=== PATIENT | female | born 2000 | race Caucasian/White ===

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

== ENCOUNTER 2019-05-08 01:53 | Emergency (ER) | payer OTHER ==
[2019-05-08 02:06] VITALS: RESP 18
[2019-05-08] MEDS ORDERED: DIPH,PERTUS(ACELL)TETVAC-LF 0.5 ML VIAL IM ONE (02:24)
[2019-05-08] MEDS ORDERED: LIDOCAINE 1%-EPI 1:100,000 20 ML VIAL SQ STA (02:25)
--- NOTE | 2019-05-08 02:28 | ED ---
General Adult HPI - General Chief complaint: Wound/Laceration Stated complaint: Fall, R Leg Laceration Time Seen by Provider: 05/08/19 02:07 Source: patient, RN notes reviewed Mode of arrival: ambulatory Limitations: no limitations - History of Present Illness Initial comments: 19-year-old female presents to the emergency department for a chief complaint of laceration. Patient states she tripped and fell. States that she hit her leg against a metal part of her dresser and it caused a laceration. Patient is not up-to-date on tetanus. She denies any difficulty moving her foot.Patient has no other complaints at this time including shortness of breath, chest pain, abdominal pain, nausea or vomiting, headache, or visual changes. - Related Data Home Medications Medication Instructions Recorded Confirmed No Known Home Medications 02/06/17 09/25/17 Allergies Allergy/AdvReac Type Severity Reaction Status Date / Time No Known Allergies Allergy Verified 09/25/17 21:44 Review of Systems ROS Statement: Those systems with pertinent positive or pertinent negative responses have been documented in the HPI. ROS Other: All systems not noted in ROS Statement are negative. Past Medical History Past Medical History: No Reported History History of Any Multi-Drug Resistant Organisms: None Reported Past Surgical History: Appendectomy Past Psychological History: Depression Smoking Status: Current every day smoker Past Alcohol Use History: None Reported Past Drug Use History: Marijuana General Exam Limitations: no limitations General appearance: alert, in no apparent distress Head exam: Present: atraumatic, normocephalic, normal inspection Eye exam: Present: normal appearance, PERRL, EOMI. Absent: scleral icterus, conjunctival injection, periorbital swelling ENT exam: Present: normal exam, mucous membranes moist Neck exam: Present: normal inspection, full ROM. Absent: tenderness, meningismus Respiratory exam: Present: normal lung sounds bilaterally. Absent: respiratory distress, wheezes, rales, rhonchi, stridor Cardiovascular Exam: Present: regular rate, normal rhythm, normal heart sounds. Absent: systolic murmur, diastolic murmur, rubs, gallop, clicks Extremities exam: Present: full ROM, normal capillary refill (Refill less than 2 seconds in the right lower extremity, DP pulse 2+), other (Patient has a 4 cm laceration noted of the mid lower extremity lateral aspect). Absent: tenderness, pedal edema, joint swelling, calf tenderness Course Vital Signs 12/18/19 02:03 Temperature 99.0 F Pulse Rate 111 H Respiratory 18 Rate Blood Pressure 121/81 O2 Sat by Pulse 98 Oximetry Procedures - Laceration Laceration #1 Consent Obtained: verbal consent Indication: laceration Site: lower extremity Size (cm): 5 Description: stellate Depth: simple, single layer Anesthetic Used: lidocaine 1%, with epi Anesthesia Technique: local infiltration Amount (mls): 7 Pre-repair: wound explored, irrigated extensively (saline pressure irrigation), deep structures intact (no evidence for tendon injury) Type of Sutures: nylon (10), vicryl (3) Size of Sutures: 5-0 Technique: simple, interrupted Patient Tolerated Procedure: well, no complications Medical Decision Making - Medical Decision Making X-ray shows soft tissue laceration, no fracture or radiopaque foreign body identified. Wound was cleaned thoroughly with saline pressure irrigation. It was then repaired with 10 simple interrupted sutures externally and 3 buried simple interrupted absorbable sutures internally. No evidence for tendon injury or deep structure injury. Discussed return parameters including as for infection as well as suture removal. Discussed applying up with primary care for wound recheck. Disposition Clinical Impression: Laceration Disposition: HOME SELF-CARE Condition: Good Instructions (If sedation given, give patient instructions): Care For Your Stitches (ED), Laceration (ED) Additional Instructions: please return in 10 days for suture removal. Follow-up with primary care in 1-2 days for a wound recheck. If you have any evidence of infection or there is spreading or streaking redness, drainage, fever or any other worsening symptoms return to the emergency department. Is patient prescribed a controlled substance at d/c from ED?: No Referrals: Kolby Topete MD [Primary Care Provider] - 1-2 days Time of Disposition: 03:30
--- NOTE | 2019-05-08 02:41 | XR ---
EXAMINATION TYPE: XR tibia fibula RT DATE OF EXAM: 05/08/2019 COMPARISON: NONE HISTORY: Laceration TECHNIQUE: 2 views FINDINGS: There is soft tissue defect over the lateral lower fibula. There is no sign of radiopaque f oreign body. There is no sign of fracture nor dislocation. IMPRESSION: Soft tissue laceration. No fracture seen.
[2019-05-08 03:39] VITALS: BP 107/79; PULSE 96; TEMP 98
== END 2019-05-08 03:38 | disposition home or self-care (01) ==
LOC: EC 01:53
DX: S81.811A Laceration without foreign body, right lower leg, initial encounter (principal); F17.200 Nicotine dependence, unspecified, uncomplicated; W01.198A Fall on same level from slipping, tripping and stumbling with subsequent striking against other object, initial encounter
CPT/HCPCS: 12002; 99283

== ENCOUNTER 2019-07-22 14:34 | Emergency (ER) | payer OTHER ==
[2019-07-22 14:51] VITALS: BP 119/77; PULSE 80; RESP 18; TEMP 98.7
--- NOTE | 2019-07-22 15:27 | ED ---
Upper Extremity HPI - General Chief Complaint: Extremity Injury, Upper Stated Complaint: hand injury/laceration Time Seen by Provider: 07/22/19 15:04 Source: patient Mode of arrival: ambulatory Limitations: no limitations - History of Present Illness Initial Comments: 19-year-old female presents today for chief complaint of right hand laceration x just prior to arrival. Patient states her right third digit on the third she has a laceration that wont stop bleeding. SHe states she has other scratches on her hand but they are not bleeding. Denies known foreign body. Patient states there is no large lacerations she denies any limitations to range of motion or strength. She states she would not do an x-ray she states that her tetanus is up-to-date. Patient denies any other areas of injury she states that she obtained this by punching glass but she states she was angry. Patient states that this was not a suicide attempt denies any depression suicidal ideation. Patient states that she is safe she denies being in harm's way. Patient is not accompanied by any other guests. Patient has no other complaints, upon arrival she appears well there is no signs of acute distress. - Related Data Previous Rx's Medication Instructions Recorded Cephalexin [Keflex] 500 mg PO Q12HR 5 Days #10 cap 07/22/19 Allergies Allergy/AdvReac Type Severity Reaction Status Date / Time No Known Allergies Allergy Verified 09/25/17 21:44 Review of Systems ROS Statement: Those systems with pertinent positive or pertinent negative responses have been documented in the HPI. ROS Other: All systems not noted in ROS Statement are negative. Past Medical History Past Medical History: No Reported History History of Any Multi-Drug Resistant Organisms: None Reported Past Surgical History: Appendectomy Past Psychological History: Depression Smoking Status: Current every day smoker Past Alcohol Use History: None Reported Past Drug Use History: Marijuana General Exam - General Exam Comments Initial Comments: General: The patient is awake and alert, in no distress, and does not appear acutely ill. Eye: +3 mm pupils are equal, round and reactive to light, extra-ocular movements are intact. No nystagmus. There is normal conjunctiva bilaterally. No signs of icterus. Cardiovascular: There is a regular rate and rhythm. No murmur, rub or gallop is appreciated. Respiratory: Lungs are clear to auscultation, respirations are non-labored, breath sounds are equal. No wheezes, stridor, rales, or rhonchi. Gastrointestinal: Soft, non-distended, non-tender abdomen without masses or organomegaly noted. There is no rebound or guarding present. Musculoskeletal: Upon inspection of the hands bilaterally there is numerous abrasions appears superficial of the ventral aspect of the right hand. Patient does have a laceration just distal to the PIP joint of the third digit of the right hand, it is superficial skin flap. Patient has full range motion of the MCP DIP and PIP joints of all 5 digits of the right hand. There is no limitations range of motion or strength. No evidence of deep laceration or obvious tendon injury or known foreign body. Sensation intact prximal and distal to injury site. Radial pulses equal bilaterally 2+. Neurological: A&O x 3. CN II-XII intact grossly, There are no obvious motor or sensory deficits. Coordination appears grossly intact. Speech is normal. Skin: Skin is warm and dry and no rashes or lesions are noted. Psychiatric: Cooperative, appropriate mood & affect, normal judgment. Limitations: no limitations Course Vital Signs 07/22/19 07/22/19 14:47 15:43 Temperature 98.7 F 98.7 F Pulse Rate 80 80 Respiratory 18 18 Rate Blood Pressure 119/77 119/77 O2 Sat by Pulse 98 98 Oximetry Procedures - Laceration Laceration #1 Consent Obtained: verbal consent Indication: laceration Site: hand Size (cm): 1 Description: linear, flap Depth: simple, single layer Pre-repair: wound explored, irrigated extensively, deep structures intact Size of Sutures: 5-0 Number of Sutures: 2 Technique: simple, interrupted Patient Tolerated Procedure: well, no complications Additional Comments: Patient refused any lidocaine she states that her worse last time she has sutures. So the procedure was performed without lidocaine. Patient type procedure well 2 sutures were placed a additional suture could have been placed however patient refused. Area was cleansed, and explored no evidence of obvious FB or tendon injury. Patient refused imaging studies prior to closure, aware of risk of fracture/open fracture/retained foreign body. Patient will be placed on antibiotics. Medical Decision Making - Medical Decision Making 19 you female presents today for chief complaint of laceration repair patient has a skin flap that won't stop bleeding on the third digit. No evidence of obvious foreign body or tendon injury. Patient neurovascular intact. Repaired with 2 sutures. Return parameters importance of follow-up with discussed patient's placed on antibiotics. Patient refused tetanus refused imaging s tudies risk were discussed at length the patient she continues to refuse. Patient does not appear intoxicated and is of sound mind. She states this is because she doesn't have insurance. I encouraged patient to have the studies performed however she continued to refuse. After procedure was performed patient has no other complaints patient is discharged appearing well Disposition Clinical Impression: Finger injury, Right hand pain, Finger laceration Disposition: HOME SELF-CARE Condition: Good Instructions (If sedation given, give patient instructions): Finger Laceration (ED) Additional Instructions: Please use medication as discussed. Please follow-up with family doctor in the next 2 days. Please return to emergency room if the symptoms increase or worsen or for any other concerns. Prescriptions: Cephalexin [Keflex] 500 mg PO Q12HR 5 Days #10 cap Is patient prescribed a controlled substance at d/c from ED?: No Referrals: Kolby Topete MD [Primary Care Provider] - 1-2 days Time of Disposition: 15:26
== END 2019-07-22 15:43 | disposition home or self-care (01) ==
LOC: EC 14:34
DX: S61.212A Laceration without foreign body of right middle finger without damage to nail, initial encounter (principal); S60.511A Abrasion of right hand, initial encounter; F17.200 Nicotine dependence, unspecified, uncomplicated; Z53.29 Procedure and treatment not carried out because of patient's decision for other reasons; W25.XXXA Contact with sharp glass, initial encounter
CPT/HCPCS: 12001; 99282

== ENCOUNTER 2020-05-31 13:52 | Emergency (ER) | payer OTHER ==
[2020-05-31 14:01] VITALS: BP 122/65; PULSE 106; RESP 20; TEMP 98.4
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
--- NOTE | 2020-05-31 15:12 | XR ---
EXAMINATION TYPE: XR knee complete RT DATE OF EXAM: 05/31/2020 COMPARISON: NONE HISTORY: Knee pain TECHNIQUE: 3 views FINDINGS: I see no fracture nor dislocation. Joint spaces are normal. There is no sign of joint effus ion. IMPRESSION: Normal right knee.
[2020-05-31] MEDS ORDERED: ACET/COD 300 MG/30 MG STARTER PACK 6 TAB BTL PO STA (15:47)
== END 2020-05-31 16:00 | disposition home or self-care (01) ==
LOC: EC 13:52
DX: S83.91XA Sprain of unspecified site of right knee, initial encounter (principal); Z90.49 Acquired absence of other specified parts of digestive tract; X58.XXXA Exposure to other specified factors, initial encounter
CPT/HCPCS: 81025; 73562; 99283; L1830

== ENCOUNTER 2020-07-01 21:31 | Emergency (ER) | payer OTHER ==
[2020-07-01 21:39] VITALS: BP 154/87; PULSE 101; RESP 18; TEMP 98
[2020-07-01] MEDS ORDERED: ZIPRASIDONE 20 MG VIAL IM STA (22:10)
[2020-07-01] MEDS ORDERED: LORazepam 2 MG/ML INJ IV STA (22:10)
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
[2020-07-01] MEDS ORDERED: LORazepam 2 MG/ML INJ IM STA (22:26)
== END 2020-07-02 04:15 | disposition home or self-care (01) ==
LOC: SUPCPDRO 21:31 → EC 21:31
DX: F32.9 Major depressive disorder, single episode, unspecified (principal); R45.851 Suicidal ideations; F17.290 Nicotine dependence, other tobacco product, uncomplicated; Z79.899 Other long term (current) drug therapy
CPT/HCPCS: 82075; 99285; 96372 ×2; J2060; J3486

== ENCOUNTER 2020-09-29 05:33 | Emergency (ER) | payer OTHER ==
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
[2020-09-29 05:49] VITALS: BP 116/84; PULSE 91; RESP 16; TEMP 97.3
== END 2020-09-29 06:52 | disposition home or self-care (01) ==
LOC: EC 05:33
DX: F43.22 Adjustment disorder with anxiety (principal); T65.91XA Toxic effect of unspecified substance, accidental (unintentional), initial encounter; Z90.89 Acquired absence of other organs; F32.9 Major depressive disorder, single episode, unspecified; F12.90 Cannabis use, unspecified, uncomplicated
CPT/HCPCS: 99284

== ENCOUNTER 2020-10-08 22:29 | Inpatient (IN) | payer MEDICAID, OTHER ==
[2020-10-08] MEDS ORDERED: SODIUM CHLORIDE 0.9% 1,000 ML IV STA (23:35)
[2020-10-08] MEDS ORDERED: diphenhydrAMINE 50 MG/ML 1 ML VIAL IM STA (23:35)
[2020-10-08] MEDS ORDERED: SODIUM CHLORIDE 0.9% 500 ML 500 ML IV STA (23:35)
[2020-10-08] MEDS ORDERED: LORazepam 2 MG/ML INJ IV STA (23:35)
[2020-10-08] MEDS ORDERED: LORazepam 2 MG/ML INJ IM STA (23:36)
[2020-10-08] MEDS ORDERED: LORazepam 1 MG TAB PO STA (23:46)
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
[2020-10-09] MEDS ORDERED: diphenhydrAMINE 50 MG/ML 1 ML VIAL IM STA (02:23)
[2020-10-09] MEDS ORDERED: ZIPRASIDONE 20 MG VIAL IM STA (02:37)
[2020-10-09 02:38] LABS: Amphetamine Screen,Urine Detected (NotDetected); Barbiturate Screen,Urine Not Detected (NotDetected); Benzodiazepines Screen,Urine Detected (NotDetected); Cocaine Screen,Urine Not Detected (NotDetected); Methadone Screen, Urine Not Detected (NotDetected); Opiate Screen,Urine Detected (NotDetected); Oxycodone Screen, Urine Not Detected (NotDetected); Phencyclidine Screen,Urine Not Detected (NotDetected); Tricyclic Antidepressant,Urine Not Detected (NotDetected); Urn Cannabinoid Scrn Detected (NotDetected)
[2020-10-09] MEDS ORDERED: MAGNESIUM HYDROXIDE 2,400 MG/10 ML CUP PO PRN (10:53)
[2020-10-09] MEDS ORDERED: MAG HYDROX/AL HYDROX/SIMETH 30 ML CUP PO PRN (10:53)
[2020-10-09] MEDS ORDERED: HALOPERIDOL LACTATE 5 MG/ML 1 ML VIAL IM PRN (10:57)
[2020-10-09] MEDS ORDERED: LORazepam 2 MG/ML INJ IM PRN ×2 (10:58→11:37)
[2020-10-09] MEDS ORDERED: LORazepam 1 MG TAB PO PRN ×2 (10:58→11:37)
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
[2020-10-09] MEDS ORDERED: chlordiazePOXIDE 25 MG CAP PO SCH (16:00)
[2020-10-09] MEDS: chlordiazePOXIDE 25 MG CAP PO SCH ×2 (16:20→21:44)
--- NOTE | 2020-10-09 17:10 | P.CONS ---
History of Present Illness - Reason for Consult Medical clearance - History of Present Illness Patient is admitted for bizarre behavior suicidal or to and substance abuse issues patient) nausea vomiting up and dysuria patient has multiple old the scars consistent with previous suicide attempts. Patient was quite a bit agitated earlier today patient was, and was able to give me history. Patient denied any recent drug abuse but her urine drug screen is positive for multiple drugs. Review of Systems REVIEW OF SYSTEMS: CONSTITUTIONAL: No fever, no malaise, no fatigue. HEENT: No recent visual problems or hearing problems. Denied any sore throat. CARDIOVASCULAR: No chest pain, orthopnea, PND, no palpitations, no syncope. PULMONARY: No shortness of breath, no cough, no hemoptysis. GASTROINTESTINAL: No diarrhea, no nausea, no vomiting, no abdominal pain. NEUROLOGICAL: No headaches, no weakness, no numbness. HEMATOLOGICAL: Denies any bleeding or petechiae. GENITOURINARY: Denies any burning micturition, frequency, or urgency. MUSCULOSKELETAL/RHEUMATOLOGICAL: Denies any joint pain, swelling, or any muscle pain. ENDOCRINE: Denies any polyuria or polydipsia. The rest of the 14-point review of systems is negative. Past Medical History Past Medical History: No Reported History History of Any Multi-Drug Resistant Organisms: None Reported Past Surgical History: Appendectomy Past Psychological History: Anxiety, Bipolar, Depression, PTSD Smoking Status: Vaper Past Alcohol Use History: None Reported Past Drug Use History: Marijuana Medications and Allergies Home Medications Medication Instructions Recorded Confirmed Type No Known Home Medications 10/09/20 10/09/20 History Allergies Allergy/AdvReac Type Severity Reaction Status Date / Time No Known Allergies Allergy Verified 10/09/20 09:28 Physical Exam Vitals: Vital Signs Temp Pulse Pulse Resp BP BP Pulse Ox 10/09/20 16:23 97.9 F 128 H 16 123/66 10/09/20 06:56 87 14 100/68 96 10/09/20 04:00 102 H 13 94/69 95 10/09/20 01:54 103 H 24 117/60 97 10/08/20 23:48 120 H 20 98 10/08/20 22:37 97.9 F 160 H 22 113/69 95 Intake and Output 10/09/20 10/09/20 10/09/20 06:59 14:59 22:59 Other: Weight 48.081 kg PHYSICAL EXAMINATION: GENERAL: The patient is alert and oriented x3, not in any acute distress. Well developed, well nourished. HEENT: Pupils are round and equally reacting to light. EOMI. No scleral icterus. No conjunctival pallor. Normocephalic, atraumatic. No pharyngeal erythema. No thyromegaly. CARDIOVASCULAR: S1 and S2 present. No murmurs, rubs, or gallops. PULMONARY: Chest is clear to auscultation, no wheezing or crackles. ABDOMEN: Soft, nontender, nondistended, normoactive bowel sounds. No palpable organomegaly. MUSCULOSKELETAL: No joint swelling or deformity. EXTREMITIES: No cyanosis, clubbing, or pedal edema. NEUROLOGICAL: Gross neurological examination did not reveal any focal deficits. SKIN: Multiple scars consistent with previous suicide attempt Results Labs: Abnormal Lab Results - Last 24 Hours (Table) 10/09/20 Range/Units 02:20 Urine Opiates Screen Detected H (NotDetected) Ur Amphetamines Screen Detected H (NotDetected) U Methamphetamines Scrn Detected H (NotDetected) U Benzodiazepines Scrn Detected H (NotDetected) U Marijuana (THC) Screen Detected H (NotDetected) Assessment and Plan Plan: -Acute psychosis and bipolar disorder: Management as per primary service -Polysubstance abuse Patient doesn't have any major medical problems management of her psychiatric issues and substance abuse coronary syndromes. We will sign off at this time please call us back if needed.
[2020-10-09] MEDS ORDERED: QUEtiapine 100 MG TAB PO SCH (21:00)
[2020-10-10] MEDS: chlordiazePOXIDE 25 MG CAP PO SCH ×3 (09:27→16:13)
[2020-10-10 09:42] LABS: Basophils # (A) 0.1 k/uL (0-0.2); Basophils % (A) 1 %; Eosinophils # (A) 0.4 k/uL (0-0.7); Eosinophils % (A) 4 %; HCT 47.1 % (34.0-46.0); Lymphocytes # (A) 1.4 k/uL (1.0-4.8); Lymphocytes % (A) 16 %; MCH 29.3 pg (25.0-35.0); MCHC 34.1 g/dL (31.0-37.0); MCV 85.9 fL (80.0-100.0); Mean Platelet Volume 7.9; Monocytes # (A) 0.6 k/uL (0-1.0); Monocytes % (A) 6 %; Neutrophils # (A) 6.4 k/uL (1.3-7.7); Neutrophils % (A) 71 %; Platelet Count 311 k/uL (150-450); RBC 5.48 m/uL (3.80-5.40); RDW 12.7 % (11.5-15.5)
[2020-10-10 09:53] LABS: ALT 22 U/L (4-34); AST 48 U/L (14-36); African American GFR (CKD) >90 (>60 ml/min/1.73 sqM); Albumin 5.1 g/dL (3.5-5.0); Alkaline Phosphatase 68 U/L (38-126); Anion Gap 20 mmol/L; Blood Urea Nitrogen 23 mg/dL (7-17); Calcium 9.6 mg/dL (8.4-10.2); Carbon Dioxide 19 mmol/L (22-30); Chloride 97 mmol/L (98-107); Glucose 64 mg/dL (74-99); Non-African American GFR(CKD) 83 (>60 ml/min/1.73 sqM); Potassium 4.6 mmol/L (3.5-5.1); Sodium 136 mmol/L (137-145); Total Protein 7.9 g/dL (6.3-8.2)
[2020-10-10 14:12] LABS: Hemoglobin A1C 5.2 % (4.0-6.0)
[2020-10-10] MEDS: ACETAMINOPHEN TAB 325 MG TAB PO PRN (16:13)
[2020-10-10 16:33] VITALS: RESP 20
[2020-10-10] MEDS ORDERED: QUEtiapine 50 MG TAB PO ONE (17:15)
[2020-10-10 17:24] LABS: Chol/HDL Ratio 4.24; Cholesterol 191 mg/dL (0-200)
[2020-10-10 18:18] LABS: T4, Free (Free Thyroxine) 2.07 ng/dL (0.78-2.19)
[2020-10-10] MEDS ORDERED: QUEtiapine 50 MG TAB PO SCH (21:00)
[2020-10-11] MEDS ORDERED: QUEtiapine 50 MG TAB PO SCH (09:00)
--- NOTE | 2020-10-11 11:50 | PN ---
PROGRESS NOTE DATE OF SERVICE: 10/10/2020. CHIEF COMPLAINT: The patient had substance abuse issues. She presented with suicidal thinking and bizarre behavior. She had grief issues with the of her mother 4 months ago. INTERVAL HISTORY: Patient has been doing fair. She had quite a bit of ups and downs yesterday. She was quite distressed about coming into the hospital. She was distressed about the petition situation and angry about her sister who filed a petition on her behalf. Nursing documented that she had periods where she became tearful she would yell. She was verbally aggressive. She was demanding to be discharged. She was able to engage with nursing and staff support, though it was an up and down process. She slept poorly last night. Today she has been up. She seems a little calmer overall, still quite distressed about the hospital situation. She was angry about being petitioned and continued to push towards the idea of discharge. Her highest CIWA score was 7 so far. When we talked about the petition situation, I provided information about the process. I did discuss with the patient that there was an option to have her sign in voluntarily though that would require me to talk to her sister who signed the petition. I noted that I would need to get more information to be able to process things with her. She said that a more important person to talk to would be her boyfriend. I indicated that we could talk to both of those people to broaden our view. At this time, the patient was not inclined to have contact with her sister and also noted that it would be difficult to go back on the petition and certification that Dr. Pacheco had completed based on her presentation in early part of her hospitalization. I also had a discussion with her about substance withdrawal issues. The patient appears to be tolerating her psychotropic medications. MENTAL STATUS: Patient sat at the far part of the room. She was fairly restless. She answered questions with brief responses. Her thoughts were clear. She tended to mostly focus on her concern about discharge and her feeling of having been hospitalized in circumstances that were quite unfair for her. Her affect was intense. Her mood depressed. She was moderately distressed. There was no clear indication of thought disorder. She voiced no thoughts of harm. Cognition was clear. ASSESSMENT: I will continue the current diagnosis and treatment plan. I will increase the patient's Seroquel and start the 50 mg twice a day in addition to 150 mg at bedtime. I discussed withdrawal issues with the patient. I also provided some handouts on managing early withdrawal. I again discussed the petition process with the patient. I encouraged her to engage in the groups and gave her a guidance about our process for working towards discharge planning. We discussed that it is important for her to be in groups and to have a positive interactions with staff as signs of her progress. We discussed that she could seek out one-to-one with staff to be able to deal with some of the emotional struggles that may be coming up at this point. We will focus on stabilization and discharge planning. RAYMOND / SMOOTHN: [id number] /
--- NOTE | 2020-10-11 11:53 | PN ---
PROGRESS NOTE DATE OF SERVICE: 10/11/2020. CHIEF COMPLAINT: The patient had substance abuse issues, suicidal thinking and bizarre behavior. She had grief issues with the of her mother 4 months ago. INTERVAL HISTORY: Patient has been doing fair. She had a quiet day yesterday as the day went on. She seemed to respond positively to the discussion we had about the petition situation and the course of treatment. I had encouraged her to engage in treatment. She did attend groups in the afternoon and seemed to find some benefit in those. Her CIWA score today just after 1:00 am was 0. She notes that she did not sleep well last night. Today she has been up. She has been more interactive with others. She comes out in the day area. She presents in a fairly calm manner and seems to be more positive in her outlook. When we talked, she was able to discuss some discharge planning issues. She seemed to be more accepting of the discharge planning which includes the issues relating to the petition. She says it is her expectation that she would sign a deferral and notes that she has been making contact herself with [facility] for followup. She notes that her mood has improved and she is a little more even in her mood overall. Her only complaint today is poor sleep last night. She tolerates her psychotropic medications. MENTAL STATUS: Patient sat near the desk I was at. She gave good eye contact. She was a little restless. She answered questions appropriately. Her thoughts were clear. She had a quiet reserved affect, though she was calm and had a friendly manner. Her mood was reserved though not clearly down or depressed. She did not appear to be significantly distressed. There was no indication of thought disorder. She voiced no thoughts of harm. Cognition was clear. ASSESSMENT: I will continue the current diagnosis and treatment plan. Patient appears to be making progress. She shows a better mood. She is more engaging. She has been appropriate in her interactions with staff and peers. She is compliant with care. I will increase her Seroquel to 200 mg at bedtime and continue 50 mg twice a day. I discussed that she can expect gradual increases in her blood level of Seroquel over the next few days, which should also benefit her in regard to withdrawal symptoms. Patient seems to be making good progress. We will focus on stabilization and discharge planning. MMODL / IJN: [id number] /
[2020-10-11] MEDS: QUEtiapine 25 MG TAB PO SCH ×2 (15:57→21:28)
[2020-10-11] MEDS ORDERED: QUEtiapine 200 MG TAB PO SCH (21:00)
--- NOTE | 2020-10-11 22:13 | XR ---
Result: Clinical History: Pain and swelling. Comparison: None available. Technique: 3 views of the right hand. Findings: No acute fracture or dislocation is seen. The visualized osseous structures are in anatomic alignmen t. The joint spaces are preserved. There is no definite radiopaque foreign body seen. Impression: No acute osseous abnormality.
[2020-10-12] MEDS: QUEtiapine 25 MG TAB PO SCH (08:35)
[2020-10-12 09:20] VITALS: BP 133/83; PULSE 110
[2020-10-12 10:03] VITALS: TEMP 98.1
[2020-10-12] MEDS: ACETAMINOPHEN TAB 325 MG TAB PO PRN (10:41)
--- NOTE | 2020-10-13 18:33 | DS ---
DISCHARGE SUMMARY DATE OF ADMISSION: 10/08/2020 DATE OF DISCHARGE: 10/12/2020. ADMISSION AND DISCHARGE DIAGNOSES: 1. Acute psychosis, likely secondary to polysubstance abuse. 2. Bipolar disorder. 3. Polysubstance abuse, methamphetamine, opioids, benzodiazepines, marijuana. HISTORY OF PRESENTING ILLNESS: The patient is a 20-year-old female. She was brought to the ED by her family for substance use issues, suicidal thinking and bizarre behavior. She had a number of stresses, including her mother dying about 4 months ago. She had a recent breakup with a boyfriend. When she got to the ED, she was in an agitated state and required 4-point restraints. She had presented to the ED on two previous occasions recently which included for substance use issues and driving erratically. The patient was expressing some paranoid delusions. She reported a history of a diagnosis of bipolar disorder. Psychotropic medications prior to admission included Prozac 40 mg a day and Seroquel 150 mg at bedtime. Substance use issues included multiple street drugs. Urine drug screen was positive for opiates, amphetamines, methamphetamines, benzodiazepines and THC. She was admitted for further evaluation. MENTAL STATUS EXAMINATION: The patient was uncooperative during the interview. She was dressed in a hospital gown. She had some agitated behavior and at times would start screaming. Speech was dysarthric. She was repetitive. Mood angry. She exhibited paranoid delusions. Cognition was impaired. COURSE OF HOSPITALIZATION: Patient was admitted for comprehensive medical, psychiatric and psychosocial evaluation. We engaged the patient in individual and group therapeutic activity. She was started on Librium 25 mg 3 times a day for benzodiazepine withdrawal. In addition, she was started on Seroquel 100 mg at bedtime. She was initiated on a [facility] protocol to monitor for withdrawal. Early on in admission, the patient was quite agitated. She was loud and demanding. She did not respond well to staff support. She was quite restless. She would walk about the unit in quite a rapid pace. She was compliant with treatment. Her Seroquel was titrated up. She was started on a daytime dose of 75 mg twice a day. Her nighttime Seroquel was titrated up to 200 mg a day. By day 2 on the psych unit she seemed to be doing better. She initially was admitted on petition. Given the difficult behavior she exhibited early on in her hospital stay, first and second certificates were completed. We were able to have a reasonable discussion about issues related to the petition. Patient ultimately deferred. She showed good improvement in her mood. She started coming to groups. She was interacting appropriately with others. Her mood brightened significantly. She seemed to have a good outlook. It was noted that prior to coming into the hospital she had made contacts herself with [facility] the previous Monday and had set up some appointments to get an evaluation. She stressed the fact herself that she recognized the need to get some mental health help and was more than willing to follow through with treatment. She had a better outlook and was able to work out some positive discharge planning. CONDITION AT DISCHARGE: Patient was significantly improved. Her mood was stable. She did not voice any thoughts of harm to self or others. She tolerated her psychotropic medications. RECOMMENDATIONS AND FOLLOWUP: The patient will be discharged on Seroquel 75 mg twice a day, 200 mg at bedtime. She will have followup with [facility] with an intake appointment on 10/15/2020 at 2 p.m. with Halina Willoughby NP. In addition, she has a followup with Dr. Rapp for primary care followup. MMODL / IJN: [id number] /
== END 2020-10-12 13:25 | disposition home or self-care (01) | DRG 885 ==
LOC: EC 22:29 → 3MHU 10-09 10:49
PROVIDERS: ADMIT Psychiatry & Neurology Psychiatry; ATTEND Psychiatry & Neurology Psychiatry
DX: F23 Brief psychotic disorder (principal); F13.239 Sedative, hypnotic or anxiolytic dependence with withdrawal, unspecified; F15.10 Other stimulant abuse, uncomplicated; F31.9 Bipolar disorder, unspecified; F43.10 Post-traumatic stress disorder, unspecified; T42.4X2A Poisoning by benzodiazepines, intentional self-harm, initial encounter; Z78.1 Physical restraint status; Z91.5 Personal history of self-harm; Z20.822 Contact with and (suspected) exposure to COVID-19
CPT/HCPCS: 80053; 80061; 80306; 81025; 82075; 83036; 84439; 84443; 84481; 85025; 87635; 96372; 99285

== ENCOUNTER 2021-09-12 10:11 | Emergency (ER) | payer OTHER ==
[2021-09-12 10:22] VITALS: BP 111/53; PULSE 100; RESP 18; TEMP 98.3
--- NOTE | 2021-09-12 11:25 | XR ---
EXAMINATION TYPE: XR wrist complete LT DATE OF EXAM: 09/12/2021 10:43 AM INDICATION: Patient age:Female; 21 years old; Reason for study: fall, pain;. COMPARISON: None TECHNIQUE: 3 views of the AP lateral and oblique. wrist. FINDINGS: No acute osseous pathology, joint dislocation, or joint effusion. No evidence of any soft tissue swelling is seen. IMPRESSION: No acute osseous pathology.
--- NOTE | 2021-09-12 12:49 | ED ---
Fall HPI - General Chief Complaint: Fall Stated Complaint: Fall,Lt Arm Pain Time Seen by Provider: 09/12/21 11:58 Source: patient Mode of arrival: ambulatory - History of Present Illness Initial Comments: Patient is a 21-year-old female who presents with left hand and wrist pain. Patient tripped and fell with FOOSH. Patient reports pain over the ulnar side of the wrist as well as the fifth metacarpal. She denies numbness and tingling. She has no other concerns. - Related Data Previous Rx's Medication Instructions Recorded QUEtiapine [SEROquel] 75 mg PO BID #60 tab 10/12/20 QUEtiapine [SEROquel] 200 mg PO HS #30 tab 10/12/20 Allergies Allergy/AdvReac Type Severity Reaction Status Date / Time No Known Allergies Allergy Verified 09/12/21 10:22 Review of Systems ROS Statement: Those systems with pertinent positive or pertinent negative responses have been documented in the HPI. ROS Other: All systems not noted in ROS Statement are negative. Past Medical History Past Medical History: No Reported History Additional Past Medical History / Comment(s): autoimmune disease History of Any Multi-Drug Resistant Organisms: None Reported Past Surgical History: Appendectomy Past Psychological History: Anxiety, Bipolar, Depression, PTSD Smoking Status: Vaper Past Alcohol Use History: None Reported Past Drug Use History: Marijuana General Exam Limitations: no limitations General appearance: alert, in no apparent distress Head exam: Present: atraumatic, normocephalic, normal inspection Eye exam: Present: normal appearance, PERRL, EOMI. Absent: scleral icterus, conjunctival injection, periorbital swelling Neck exam: Present: normal inspection, full ROM Respiratory exam: Present: normal lung sounds bilaterally. Absent: respiratory distress, wheezes, rales, rhonchi, stridor Cardiovascular Exam: Present: regular rate, normal rhythm, normal heart sounds. Absent: systolic murmur, diastolic murmur, rubs, gallop, clicks GI/Abdominal exam: Present: soft, normal bowel sounds. Absent: distended, tenderness, guarding, rebound, rigid Left Hand Wrist exam: Present: full ROM, tenderness, swelling, ecchymosis, other (Ecchymosis and minimal swelling over the distal end of the fifth metacarpal with tenderness. No snuffbox tenderness). Absent: normal inspection Neuro motor exam: Present: wrist extension intact, thumb opposition intact, thumb IP flexion intact, thumb adduction intact, fingers 2-5 abduction intact Neurosensory exam: Present: radial nerve intact, ulnar nerve intact, median nerve intact Vascular: Present: normal capillary refill, radial pulse, brachial pulse, ulnar pulse. Absent: vascular compromise, Pallo Neurological exam: Present: alert, oriented X3, CN II-XII intact Psychiatric exam: Present: normal affect, normal mood Skin exam: Present: warm, dry, intact, normal color. Absent: rash Course Vital Signs 09/12/21 10:19 Temperature 98.3 F Pulse Rate 100 Respiratory 18 Rate Blood Pressure 111/53 O2 Sat by Pulse 97 Oximetry Medical Decision Making - Medical Decision Making This is a 21-year-old female who presents with left wrist and hand pain after fall with FOOSH mechanism today. Thorough history and examination were performed. Patient is neurovascularly intact. There is ecchymosis and minimal swelling at the distal end of the fifth metacarpal. No snuffbox tenderness. No tenderness as well as palpation. No numbness and tingling. Left wrist and hand x-ray were obtained which were unremarkable. Patient declines pain medication at this time. The wrist and hand were wrapped in Rad bandage for comfort. She will be discharged. RICE education was provided. Patient verbalizes understanding and is agreeable to this plan. Dr. Simon is my attending. Disposition Clinical Impression: Left wrist pain, Left hand pain, Fall Disposition: HOME SELF-CARE Condition: Good Instructions (If sedation given, give patient instructions): Wrist Injury (ED) Additional Instructions: Please rest, ice, and elevate the wrist for symptom relief. You may take Motrin or other anti-inflammatories for pain. Follow-up with primary care provider in one to 2 days. Return to the emergency department experience new, concerning, or worsening symptoms. Is patient prescribed a controlled substance at d/c from ED?: No Referrals: None,Stated [Primary Care Provider] - 1-2 days Time of Disposition: 13:28
--- NOTE | 2021-09-12 13:13 | XR ---
EXAMINATION TYPE: XR hand complete LT DATE OF EXAM: 09/12/2021 12:28 PM INDICATION: Patient age:Female; 21 years old; Reason for study: fall with fifth metacarpal pain; COMPARISON: None TECHNIQUE: 3 views of the left hand were obtained. FINDINGS: Normal alignment of the visualized joints. No acute osseous pathology is identified. No e vidence of soft tissue swelling. IMPRESSION: No acute osseous pathology.
== END 2021-09-12 13:43 | disposition home or self-care (01) ==
LOC: EC 10:11
DX: M79.642 Pain in left hand (principal); M25.532 Pain in left wrist; F17.209 Nicotine dependence, unspecified, with unspecified nicotine-induced disorders; W01.0XXA Fall on same level from slipping, tripping and stumbling without subsequent striking against object, initial encounter
CPT/HCPCS: 99284

== ENCOUNTER → 2021-12-23 | Outpatient (CLI) | payer OTHER ==
--- NOTE | 2021-12-23 14:33 | US ---
EXAMINATION TYPE: US OB anatomy transabd DATE OF EXAM: 12/23/2021 COMPARISON: NONE HISTORY: 21-year-old female Z36.87 ENCOUNTER FOR SCREENING. Anatomy scan TECHNIQUE: OBTA FINDINGS: EXAM MEASUREMENTS: GESTATIONAL AGE / DATING Physician Established: (20 weeks/2 days) EDC: 05/10/2022 Dates by LMP: unknown Dates by First Scan: HOSPITAL SUPERINTENDENT here Dates by Current Scan for: (20 weeks/0 days) EDC: 05/12/2022 SURVEY IUP: Single PLACENTA: Anterior-fundal PREVIA: No previa YOVANA: 17.4m Normal CERVICAL LENGTH (transabdominal: norm > 3.0cm): 3.2 cm, patient not prepped adequately for transvagin al measurement. BIOMETRY PRESENTATION: Variable BPD: 4.7cm 20weeks / 2 days HC: 17.9 20weeks / 2 days AC: 15.1 20weeks / 2 days FL: 3.2cm 19 weeks / 6 days ESTIMATED WEIGHT IN GRAMS: 332.7 grams ESTIMATED WEIGHT IN LBS/OZ: 0 lbs. 12 oz. WEIGHT PERCENTAGE BASED ON ESTABLISHED DATE: 35.4 % HC/AC: 1.1 Normal FL/AC: 20.9 Normal HEART RATE: 157 bpm RHYTHM: Normal ANATOMY SEEN (within normal limits): Lateral Vent (< 1 cm) 0.6 cm Cisterna Magna (< 1.1 cm) 0.4 cm Nuchal Fold (< 0.6 cm) 0.2 cm Cerebellum (varies with age) 2.0 cm Choroid Plexus (bilateral) Midline Falx Cavus Septi Pellucidi Four Chamber Heart Outflow tracts: LVOT/RVOT Stomach Situs Diaphragm Kidneys (bilateral) Bladder Three Vessel Cord Arms (bilateral) Legs (bilateral) ANATOMY NOT SEEN: Spine sag and trv - due to position Compressor Operator notes: Cervical measurement with full bladder -came from office, not prepped ANATOMY SUBOPTIMAL: Nose / Lips (excessive soft tissue crowding) Cord insertion (unable to exclude bulging soft tissue along the lateral aspect of the insertion) IMPRESSION: 1. Single live intrauterine with physician established gestational age of 20 weeks 2 days. Current ultrasound biometry is concordant (20 weeks 0 days) placing the child at the 35th percentile for weight. 2. Unable to adequately visualize the spine due to position. Nose/lips and cord insertion were also suboptimal. Patient can return for rescan in one to 2 weeks. Otherwise, the remaining anatomy ap pears normal.
== END | disposition home or self-care (01) ==
LOC: RADUSWWP 10:38
PROVIDERS: ATTEND Obstetrics & Gynecology
DX: Z36.87 Encounter for antenatal screening for uncertain dates (principal); Z3A.20 20 weeks gestation of pregnancy
CPT/HCPCS: 76811

== ENCOUNTER → 2021-12-30 | Outpatient (CLI) | payer OTHER ==
--- NOTE | 2021-12-30 13:25 | US ---
EXAMINATION TYPE: US OB Call Back DATE OF EXAM: 12/30/2021 COMPARISON: survey 12/23/2021 CLINICAL HISTORY: 21-year-old female Z36.0 Encounter for screening for chromo. OB Call Back for rescan of missed anatomy. FINDINGS: GESTATIONAL AGE / DATING Dates by Initial Survey Scan: (21 weeks/2 days) EDC: 05/10/2022 HEART RATE: 147 bpm RHYTHM: Normal ANATOMY SEEN (second anatomic survey look): Nose / Lips Cord Insert Longitudinal Spine Transverse Spine Cervix: 3.6cm, within normal limits. IMPRESSION: Nose/lips, cord insertion, and spine all appear normal. This completes the survey.
== END | disposition home or self-care (01) ==
LOC: RADUSWWP 11:01
PROVIDERS: ATTEND Obstetrics & Gynecology
DX: Z53.9 Procedure and treatment not carried out, unspecified reason (principal)

== ENCOUNTER 2022-05-08 07:12 | Inpatient (IN) | payer OTHER ==
[2022-05-08] MEDS: LACTATED RINGERS 1,000 ML IV SCH ×4 (07:50→16:04)
[2022-05-08] MEDS ORDERED: LIDOCAINE 0.5% (PF) 5 MG/ML (50 ML SDV) SQ PRN (07:53)
[2022-05-08] MEDS ORDERED: TERBUTALINE 1 MG/ML VIAL SQ PRN (07:53)
[2022-05-08] MEDS ORDERED: OXYTOCIN 30 UNITS/500 ML NS 30 UNIT in SALINE 1 500ML.BAG IV SCH ×2 (08:00→17:45)
[2022-05-08 08:08] LABS: Basophils # (A) 0.1 k/uL (0-0.2); Basophils % (A) 0 %; Eosinophils # (A) 0.1 k/uL (0-0.7); Eosinophils % (A) 1 %; HCT 42.3 % (34.0-46.0); HGB 14.9 gm/dL (11.4-16.0); Lymphocytes # (A) 1.9 k/uL (1.0-4.8); Lymphocytes % (A) 13 %; MCH 30.9 pg (25.0-35.0); MCHC 35.2 g/dL (31.0-37.0); MCV 87.8 fL (80.0-100.0); Mean Platelet Volume 9.3; Monocytes # (A) 0.9 k/uL (0-1.0); Monocytes % (A) 6 %; Neutrophils # (A) 11.5 k/uL (1.3-7.7); Neutrophils % (A) 77 %; Platelet Count 185 k/uL (150-450); RBC 4.82 m/uL (3.80-5.40); RDW 13.5 % (11.5-15.5)
[2022-05-08] MEDS: BUTORPHANOL 1 MG/ML 1 ML VIAL IV PRN ×3 (09:01→13:01)
--- NOTE | 2022-05-08 12:08 | P.HPOB ---
History of Present Illness H&P Date: 05/08/22 Chief Complaint: Regular uterine contractions Ms. Morris is a 22 year old at 39 weeks and 5 days with EDC of 05/10/2022 who presents to labor and delivery with regular uterine contractions. She denies leakage of fluid or vaginal bleeding. She states good movement. Past medical history is significant for Guillain Timber Syndrome. Past surgical history is significant for appendectomy. Laboratory workup throughout showed blood type O positive, antibody screen negative, rubella immune, VDRL non-reactive, HBsAg negative, HIV non- reactive, 1 hr GTT 128, Group B Strep negative. Past Medical History Past Medical History: No Reported History Additional Past Medical History / Comment(s): autoimmune disease. Guillain Timber Syndrome. History of Any Multi-Drug Resistant Organisms: None Reported Past Surgical History: Appendectomy Past Anesthesia/Blood Transfusion Reactions: No Reported Reaction Past Psychological History: Anxiety, Bipolar, Depression, PTSD Smoking Status: Current every day smoker Past Alcohol Use History: None Reported Past Drug Use History: Marijuana Additional Drug Use History / Comment(s): Daily edable use and vape. - Past Family History Mother Family Medical History: No Reported History Medications and Allergies Home Medications Medication Instructions Recorded Confirmed Type Vit No.179/Iron/Folic 1 each PO DAILY 05/08/22 05/08/22 History [ Tablet] Allergies Allergy/AdvReac Type Severity Reaction Status Date / Time No Known Allergies Allergy Verified 05/08/22 07:26 Exam Vital Signs Temp Pulse Resp BP Pulse Ox 05/08/22 08:19 96.9 F L 79 18 126/83 100 05/08/22 07:40 97.3 F L 90 18 128/70 98 Intake and Output 05/07/22 05/08/22 05/08/22 22:59 06:59 14:59 Other: Weight 61.235 kg Focused physical exam is performed. This is a healthy-appearing gravid woman in no apparent distress. Cervix is 4 centimeters dilated, 100% effaced, and -1 station. AROM is undertaken for scant clear fluid. Results Result Diagrams: 05/08/22 07:50 Abnormal Lab Results - Last 24 Hours (Table) 05/08/22 Range/Units 07:50 WBC 15.0 H (3.8-10.6) k/uL Neutrophils # 11.5 H (1.3-7.7) k/uL Assessment and Plan Assessment: 22 year old at 39 weeks and 5 days presenting in labor. Plan: Admiy, NPO, mIVF. Oxytocing augmentation. s/p AROM. Nitrous oxide prn, not a candidate for epidural secondary to Guillain Timber Syndrome. Time with Patient: Greater than 30
[2022-05-08] MEDS ORDERED: diphenhydrAMINE 25 MG CAP PO PRN (17:37)
[2022-05-08] MEDS ORDERED: diphenhydrAMINE 50 MG CAP PO PRN (17:37)
[2022-05-08] MEDS ORDERED: ACETAMINOPHEN TAB 325 MG TAB PO PRN (17:37)
[2022-05-08] MEDS ORDERED: ZOLPIDEM 5 MG TAB PO PRN (17:37)
[2022-05-08] MEDS ORDERED: LANOLIN CREAM 5 GM TUBE TOPICAL PRN (17:37)
[2022-05-08] MEDS ORDERED: HYDROCORTISONE 2.5% RECTAL CREAM 30 GM TUBE RECTAL PRN (17:37)
[2022-05-08] MEDS ORDERED: BENZOCAINE/MENTHOL SPRAY 1 GM/SPRAY AEROSOL TOPICAL PRN (17:37)
[2022-05-08] MEDS ORDERED: diphenhydrAMINE 50 MG/ML 1 ML VIAL IVP PRN ×2 (17:37)
[2022-05-08] MEDS ORDERED: SIMETHICONE 80 MG CHEWABLE PO PRN (17:37)
--- NOTE | 2022-05-08 17:39 | P.PROBDLV ---
Vaginal Delivery Note - . Vaginal Delivery Note: Procedure: Vacuum-Assisted Vaginal Delivery Estimated Blood Loss: 200cc Complications: None Findings: 1. Live female infant with Apgars of 8 and 9, weight 6 pounds and 14 ounces. Mrs Morris is a 22-year-old at 39 weeks and 5 days who was admitted for labor. Oxytocin augmentation was started and AROM was undertaken for clear fluid at 1101. Throughout the majority of the labor, heart tones were Category I. At 8 centimeters dilation the patient began to have intermittent variables that were improved with position changes and fluid boluses. The patient progressed to complete. The baby was at a +1 station when the patient began pushing. She continued to push until the fetus reached +2 station. During pushing, the heart tracing showed decelerations into the 80s with progressively worse recovery in between pushes. Because of this, we recommended a vacuum delivery for the baby. The patient agreed. The baby's head was confirmed to be in the occiput anterior presentation with 100% effacement and +2 station. The vacuum was placed and the correct placement in front of the posterior fontanelle was confirmed digitally. With the patient's next contraction, the vacuum was inflated and a gentle downward pressure was used to assist with brining the baby's head to a +3 station. The head was +4 station and the vacuum was removed. The head was delivered without difficulty over an intact perineum. There was no nuchal cord. Shoulders followed by body were delivered without difficulty. The baby's mouth and nose were bulb suctioned. The cord was clamped x2 and cut. The was taken to the warmer. Cord blood was obtained. Placenta delivered whole with gentle cord traction. Oxytocin was started to facilitate uterine tone. Uterine fundus firm and bleeding minimal upon fundal massage. Perineal inspection revealed a small right sulcal laceration and bilateral periurethral lacerations. These were repaired in a running fashion with 3-0 Polysorb. Patient stable and was allowed to begin the bonding experience with her .
[2022-05-08] MEDS: IBUPROFEN 600 MG TAB PO PRN (17:59)
[2022-05-08 19:36] LABS: Amphetamine Screen,Urine Not Detected (NotDetected); Barbiturate Screen,Urine Not Detected (NotDetected); Benzodiazepines Screen,Urine Not Detected (NotDetected); Cocaine Screen,Urine Not Detected (NotDetected); Methadone Screen, Urine Not Detected (NotDetected); Opiate Screen,Urine Not Detected (NotDetected); Oxycodone Screen, Urine Not Detected (NotDetected); Phencyclidine Screen,Urine Not Detected (NotDetected); Tricyclic Antidepressant,Urine Not Detected (NotDetected); Urn Cannabinoid Scrn Detected (NotDetected)
[2022-05-09] MEDS: IBUPROFEN 600 MG TAB PO PRN ×3 (01:23→21:57)
[2022-05-09] MEDS: SENNOSIDES-DOCUSATE SODIUM 1 EACH TAB PO SCH ×3 (02:10→21:58)
[2022-05-09 06:52] LABS: Basophils % (A) 0 %; Eosinophils # (A) 0.1 k/uL (0-0.7); Eosinophils % (A) 1 %; HCT 32.6 % (34.0-46.0); Lymphocytes # (A) 1.7 k/uL (1.0-4.8); Lymphocytes % (A) 11 %; MCV 88.6 fL (80.0-100.0); Mean Platelet Volume 9.6; Monocytes # (A) 1.2 k/uL (0-1.0); Monocytes % (A) 8 %; Neutrophils # (A) 11.5 k/uL (1.3-7.7); Neutrophils % (A) 78 %; Platelet Count 170 k/uL (150-450); RBC 3.68 m/uL (3.80-5.40); RDW 13.6 % (11.5-15.5); WBC 14.8 k/uL (3.8-10.6)
[2022-05-09 06:53] LABS: HGB 11.4 gm/dL (11.4-16.0)
--- NOTE | 2022-05-09 09:53 | P.PNOBGVD ---
Subjective - Subjective Principal diagnosis: Vacuum Assisted Vaginal Delivery Interval history: The patient is doing well this morning and had no acute events overnight. She has no complaints this morning. She reports moderate lochia, passing flatus, voiding without difficulty, ambulating, and eating/drinking without nausea or vomiting. She is her infant without difficulty. She denies chest pain, shortness of breathing, fevers, or chills overnight. She denies pain or swelling in the legs. Patient reports: Reports appetite normal, Reports voiding normally, Reports pain well controlled, Reports ambulating normally : doing well, nursing well Objective - Latest Vital Signs Latest vital signs: Vital Signs Temp Pulse Resp BP Pulse Ox 05/09/22 08:00 98.1 F 76 16 111/71 98 05/09/22 04:00 98.5 F 150 H 16 117/71 05/09/22 00:00 98.2 F 69 16 111/67 98 05/08/22 19:40 98.4 F 66 16 115/59 96 05/08/22 18:56 98.2 F 84 18 127/65 05/08/22 18:26 98.2 F 88 18 126/59 05/08/22 18:11 94 18 110/60 05/08/22 17:56 98.2 F 98 18 112/71 99 05/08/22 17:40 98.2 F 98 18 112/71 99 05/08/22 17:26 98.4 F 93 18 127/74 99 Intake and Output 05/08/22 05/09/22 05/09/22 22:59 06:59 14:59 Intake Total 500.000 Output Total 200 Balance 300.000 Intake: Intake, IV Titration 500.000 Amount Oxytocin 30 Units/500 ml 500.000 Ns 30 unit In Saline 1 500ml.bag @ Per Protocol IV .Q0M [facility] Rx#:[id number] Output: Output, Quantitative 200 Blood Loss Other: # Voids 1 1 1 - Exam Extremities: Present: normal Abdomen: Present: normal appearance, soft Uterus: Present: normal, firm - Labs Labs: Abnormal Lab Results - Last 24 Hours (Table) 05/08/22 05/09/22 Range/Units 07:30 06:24 WBC 14.8 H (3.8-10.6) k/uL RBC 3.68 L (3.80-5.40) m/uL Hct 32.6 L (34.0-46.0) % Neutrophils # 11.5 H (1.3-7.7) k/uL Monocytes # 1.2 H (0-1.0) k/uL U Marijuana (THC) Screen Detected H (NotDetected) Assessment and Plan Assessment: 22 year old now PPD#1 s/p Vacuum Assited Vaginal Delivery Plan: 1. . Patient doing well, meeting all milestones appropriately. 2. Viable female . Doing well at the bedside, nursing well. 3. Contraception. Discussed 6 weeks of pelvic rest. Recommend contraception, patient to consider options and we will revisit this at her 6 week visit. Dispo: Discharge home today. Follow up in the office in 6 weeks. Take pain medications as needed.
--- NOTE | 2022-05-09 10:01 | P.DS ---
Providers Date of admission: 05/08/22 07:46 Expected date of discharge: 05/09/22 Attending physician: Ksenia Martinez MD Primary care physician: Stated None Hospital Course: This is a 22 year old now who presented to labor and delivery at 39 weeks and 5 days in labor. She was admitted for oxytocin augmentation and AROM. She quickly progressed to complete dilation. During the second stage, the fetus began having decelerations into the 80s with progressively worse recovery to baseline in between pushes. The decision was made to do an outlet vacuum assisted vaginal delivery. , the patient met all milestones approp riately and desires discharge home today on day 1. We discussed 6 weeks of pelvic rest, taking pain medications as needed, and following up in the office in 6 weeks. Patient Condition at Discharge: Good Plan - Discharge Summary Discharge Rx Participant: No New Discharge Prescriptions: New Ibuprofen [Motrin] 600 mg PO Q6HR PRN #20 tab PRN Reason: Mild Pain (Scale 1 To 3) Acetaminophen Tab [Tylenol] 650 mg PO Q6H PRN #20 tab PRN Reason: Mild Pain (Scale 1 To 3) No Action Vit No.179/Iron/Folic [ Tablet] 1 each PO DAILY Discharge Medication List Vit No.179/Iron/Folic [ Tablet] 1 each PO DAILY 05/08/22 [History] Acetaminophen Tab [Tylenol] 650 mg PO Q6H PRN #20 tab 05/09/22 [Rx] Ibuprofen [Motrin] 600 mg PO Q6HR PRN #20 tab 05/09/22 [Rx] Follow up Appointment(s)/Referral(s): Ksenia Martinez MD [STAFF PHYSICIAN] - 6 Weeks Patient Instructions/Handouts: Depression (DC), Your Baby (DC), Expression, Collection and Storage of Breast Milk (DC), How to Increase Your Milk Supply (DC), How to Tell if Your Baby is Getting Enough Breast Milk (DC), Caring for Your Breastfed Baby (DC), Bleeding (DC), Vaginal Delivery (DC) Activity/Diet/Wound Care/Special Instructions: Activity as tolerated. Pelvic rest for 6 weeks. Discharge Disposition: HOME SELF-CARE
[2022-05-10] MEDS: HYDROcodone/APAP 5-325MG 1 EACH TAB PO PRN ×2 (00:03→11:40)
[2022-05-10] MEDS: IBUPROFEN 600 MG TAB PO PRN (07:49)
[2022-05-10] MEDS: SENNOSIDES-DOCUSATE SODIUM 1 EACH TAB PO SCH (07:49)
--- NOTE | 2022-05-10 07:55 | P.PNOBGVD ---
Subjective - Subjective Principal diagnosis: vacuum assisted vaginal delivery Interval history: Patient doing well. No acute events since yesterday. Minimal lochia, going well, voiding without difficulty, ambulating normally. Denies chest pain, shortness of breath, nausea, vomiting, pain/swelling in legs. Patient reports: Reports appetite normal, Reports voiding normally, Reports pain well controlled, Reports ambulating normally [place]: doing well, other (getting phototherapy) Objective - Latest Vital Signs Latest vital signs: Vital Signs Temp Pulse Resp BP Pulse Ox 05/10/22 00:00 98.4 F 67 14 114/71 97 05/09/22 16:00 98.2 F 74 16 119/79 99 05/09/22 08:00 98.1 F 76 16 111/71 98 Intake and Output 05/09/22 05/10/22 05/10/22 22:59 06:59 14:59 Other: # Voids 1 2 - Exam Extremities: Present: normal Abdomen: Present: normal appearance, soft Uterus: Present: normal Assessment and Plan Assessment: 22 year old now PPD#2 s/p Vacuum Assited Vaginal Delivery Plan: 1. . Patient doing well, meeting all milestones appropriately. 2. Viable female . Doing well at the bedside, nursing well. 3. Contraception. Discussed 6 weeks of pelvic rest. Recommend contraception, patient to consider options and we will revisit this at her 6 week visit. Dispo: Discharge home today. Follow up in the office in 6 weeks. Take pain medications as needed.
[2022-05-10 09:12] VITALS: BP 128/59; PULSE 70; RESP 16; TEMP 97.9
== END 2022-05-10 15:15 | disposition home or self-care (01) | DRG 806 ==
LOC: FBPOP 07:12 → 4FBP 07:46
PROVIDERS: ADMIT Obstetrics & Gynecology; ATTEND Obstetrics & Gynecology
PROC: 0UQMXZZ Repair Vulva, External Approach (ICD-10-PCS; principal; 2022-05-08)
PROC: 10907ZC Drainage of Amniotic Fluid, Therapeutic from Products of Conception, Via Natural or Artificial Opening (ICD-10-PCS; principal; 2022-05-08)
PROC: 0UQGXZZ Repair Vagina, External Approach (ICD-10-PCS; principal; 2022-05-08)
PROC: 10D07Z6 Extraction of Products of Conception, Vacuum, Via Natural or Artificial Opening (ICD-10-PCS; principal; 2022-05-08)
DX: O99.12 Other diseases of the blood and blood-forming organs and certain disorders involving the immune mechanism complicating childbirth (principal); G61.0 Guillain-Barre syndrome; Z37.0 Single live birth; O71.4 Obstetric high vaginal laceration alone; O71.82 Other specified trauma to perineum and vulva; O76 Abnormality in fetal heart rate and rhythm complicating labor and delivery; O99.334 Smoking (tobacco) complicating childbirth; F17.290 Nicotine dependence, other tobacco product, uncomplicated; O99.324 Drug use complicating childbirth; F12.90 Cannabis use, unspecified, uncomplicated; O99.344 Other mental disorders complicating childbirth; F41.9 Anxiety disorder, unspecified; F31.9 Bipolar disorder, unspecified; F43.10 Post-traumatic stress disorder, unspecified; Z28.310 Unvaccinated for COVID-19; Z3A.39 39 weeks gestation of pregnancy
CPT/HCPCS: 59025; 80306; 85025; 86850; 86900; 86901; 99213

== ENCOUNTER 2023-07-04 15:43 | Emergency (ER) | payer OTHER ==
[2023-07-04 16:15] VITALS: RESP 20
--- NOTE | 2023-07-04 17:20 | ED ---
General Adult HPI - General Source: patient, police Mode of arrival: ambulatory Limitations: no limitations <Grace Deleon - Last Filed: 07/04/23 17:23> - General Source: RN notes reviewed, old records reviewed Mode of arrival: ambulatory Limitations: no limitations - History of Present Illness -: unknown Severity scale (1-10): 0 Improves with: none Worsens with: none Associated Symptoms: denies other symptoms <Azar Deutsch - Last Filed: 07/13/23 06:26> - General Chief complaint: Psychiatric Symptoms Stated complaint: Mental Health [place] - History of Present Illness Initial comments: 23 year old female presents to the emergency department petitioned by court for mental health evaluation. She does follow with [facility]. Follows closely with her psychiatrist and therapist. Taking her medications as prescribed. Denies HI, SI. Hyperverbal. (Grace Deleon) This is a 23-year-old female to the ER under petition by police department as family called secondary to psychiatric illness. Patient does admit to drinking on last night (Azar Deutsch) - Related Data Home Medications Medication Instructions Recorded Confirmed Cephalexin [Keflex] 500 mg PO TID 07/04/23 07/04/23 Mirtazapine [Remeron] 30 mg PO HS 07/04/23 07/04/23 Woamoszv-Lhylsqozc-Ul Otic 2 drops TOPICAL TID 07/04/23 07/04/23 [Cortisporin Otic Soln] Pregabalin [Lyrica] 150 mg PO TID PRN 07/04/23 07/04/23 QUEtiapine [SEROquel] 50 mg PO HS 07/04/23 07/04/23 levETIRAcetam [Keppra] 500 mg PO Q12HR 07/04/23 07/04/23 norgestimate-ethinyl estradioL 1 tab PO DAILY 07/04/23 07/04/23 [Sprintec 28 Day Tablet] Allergies Allergy/AdvReac Type Severity Reaction Status Date / Time No Known Allergies Allergy Verified 07/04/23 19:39 Review of Systems ROS Other: All systems not noted in ROS Statement are negative. <Grace Deleon - Last Filed: 07/04/23 17:23> ROS Other: All systems not noted in ROS Statement are negative. <Azar Deutsch - Last Filed: 07/13/23 06:26> ROS Statement: Those systems with pertinent positive or pertinent negative responses have been documented in the HPI. Past Medical History Past Medical History: No Reported History Additional Past Medical History / Comment(s): autoimmune disease. Guillain Dubach Syndrome. History of Any Multi-Drug Resistant Organisms: None Reported Past Surgical History: Appendectomy Past Anesthesia/Blood Transfusion Reactions: No Reported Reaction Past Psychological History: Anxiety, Bipolar, Depression, PTSD Smoking Status: Current every day smoker Past Alcohol Use History: None Reported Past Drug Use History: Marijuana - Past Family History Mother Family Medical History: No Reported History <Grace Deleon - Last Filed: 07/04/23 17:23> General Exam Limitations: no limitations <Grace Deleon - Last Filed: 07/04/23 17:23> Limitations: no limitations General appearance: alert, in no apparent distress, anxious Head exam: Present: atraumatic, normocephalic, normal inspection Eye exam: Present: normal appearance, PERRL, EOMI. Absent: scleral icterus, conjunctival injection, periorbital swelling ENT exam: Present: normal exam, mucous membranes moist Neck exam: Present: normal inspection. Absent: tenderness, meningismus, lymphadenopathy Respiratory exam: Present: normal lung sounds bilaterally. Absent: respiratory distress, wheezes, rales, rhonchi, stridor Cardiovascular Exam: Present: normal rhythm, tachycardia, normal heart sounds. Absent: systolic murmur, diastolic murmur, rubs, gallop, clicks GI/Abdominal exam: Present: soft, normal bowel sounds. Absent: distended, tenderness, guarding, rebound, rigid Extremities exam: Present: normal inspection, full ROM, normal capillary refill. Absent: tenderness, pedal edema, joint swelling, calf tenderness Back exam: Present: normal inspection Neurological exam: Present: alert, oriented X3, CN II-XII intact Psychiatric exam: Present: normal affect, normal mood Skin exam: Present: warm, dry, intact, normal color. Absent: rash <Azar Deutsch - Last Filed: 07/13/23 06:26> - General Exam Comments Initial Comments: Visual Physical Exam Vital signs reviewed General: Well-appearing, nontoxic, no acute distress. Head: Normocephalic, atraumatic Eyes: PERRLA, EOMI ENT: Airway patent Chest: Nonlabored breathing Skin: No visual rash, normal skin tone Neuro: Alert and oriented 3 Musculoskeletal: No gross abnormalities (Grace Deleon) Course <Azar Deutsch - Last Filed: 07/13/23 06:26> Vital Signs 07/04/23 07/04/23 16:04 20:50 Temperature 98.5 F 98.1 F Pulse Rate 120 H 105 H Respiratory 20 20 Rate Blood Pressure 137/94 128/84 O2 Sat by Pulse 97 97 Oximetry - Reevaluation(s) Reevaluation #1: 07/04/23 19:24 Medical records reviewed (Azar Deutsch) Reevaluation #2: 07/04/23 19:24 Medically cleared for psychiatric evaluation (Azar Deutsch) Medical Decision Making <Grace Deleon - Last Filed: 07/04/23 17:23> <Azar Deutsch - Last Filed: 07/13/23 06:26> - Medical Decision Making Quick note preformed by Grace Deleon PA-C (Grace Deleon) 23 female to ER for evaluation today. Patient presents for psychiatric illness here in the ER seen evaluated psychiatry and can be discharged home (Azar Deutsch) Disposition <Grace Deleon - Last Filed: 07/04/23 17:23> Is patient prescribed a controlled substance at d/c from ED?: No Time of Disposition: 20:30 <Azar Deutsch - Last Filed: 07/13/23 06:26> Clinical Impression: Mood disorder, Acute psychosis, Polysubstance abuse Disposition: HOME SELF-CARE Condition: Good Instructions (If sedation given, give patient instructions): Mood Disorders (ED) Referrals: None,Stated [Primary Care Provider] - 1-2 days
[2023-07-04 21:15] VITALS: BP 128/84; PULSE 105; TEMP 98.1
== END 2023-07-04 20:55 | disposition home or self-care (01) ==
LOC: EC 15:43
DX: F39 Unspecified mood [affective] disorder (principal); F23 Brief psychotic disorder; F19.10 Other psychoactive substance abuse, uncomplicated; F41.9 Anxiety disorder, unspecified; F31.9 Bipolar disorder, unspecified; F17.200 Nicotine dependence, unspecified, uncomplicated; F12.90 Cannabis use, unspecified, uncomplicated; Z79.899 Other long term (current) drug therapy
CPT/HCPCS: 82075; 99285

== ENCOUNTER → 2024-01-02 | Outpatient (CLI) | payer OTHER ==
--- NOTE | 2024-01-27 20:11 | CT ---
"Site ID synapse default Patient Kerri Morris ID |2000 Age/Gender: 23Y, F Order # N/A Procedure CT LOW EXT WO CON LT Date 01/02/2024 11:23:00 AM EXAMINATION TYPE: CT lower extremity LT wo con CT DLP: 368.80 mGycm, Automated exposure control for dose reduction was used. DATE OF EXAM: 01/10/2024 3:29 PM COMPARISON: None, please note PACS Production downtime occurred during the radiologist interpretation of these images with limited priors/reports. CLINICAL INDICATION: Female, 23 year old with history of fracture. TECHNIQUE: Axial images were obtained of the left ankle and foot without the use of IV contrast. Add itional coronal and sagittal reformatted images and soft tissue and bone window were obtained for rev iew. FINDINGS: Remote appearing fracture involving the medial posterior aspect of the calcaneus with corti ki spurring identified related to healing. No definitive fracture line visualized now. Minimal surro unding soft tissue edema. No acute fracture identified. No dislocation. Ankle mortise is intact. No f ocal muscular atrophy. No radiopaque foreign body identified. IMPRESSION: Remote healed calcaneal fracture without fracture line visualized."
== END | disposition home or self-care (01) ==
LOC: RADCTMAIN 11:00
PROVIDERS: ATTEND Podiatrist
DX: S92.002A Unspecified fracture of left calcaneus, initial encounter for closed fracture (principal)